=== PATIENT | male | born 1990 | race Caucasian/White ===

== ENCOUNTER 2022-03-28 08:13 | Day surgery (SDC) | payer OTHER, SELFPAY ==
[2022-03-28] VITALS (15 sets, daily range): BP systolic 122–153; BP diastolic 63–91; PULSE 75–98; RESP 14–18; TEMP 36.2–36.7; O2SAT 96–99; BMI 24.6
[2022-03-28] MEDS: CEFAZOLIN 2 GM INJ IVP (10:03)
[2022-03-28] MEDS: BUPIVACAINE 0.25% 30 ML INJECTION (11:50)
--- NOTE | 2022-03-28 14:08 | PM.GSPRC ---
Operative Note Date of procedure: 03/28/22 Type of Procedure: Laparoscopic converted to open right inguinal hernia repair Procedure Description: After discussing the risks and benefits of the procedure, the patient signed informed consent.? The operative site was marked and the patient was brought to the operating room and placed on the operating table in supine position.? Care was taken to pad the patient's pressure points.?? The patient was then [intubated/given sedation] by anesthesia.?? The operative site was then prepped and draped in the usual sterile fashion.? A time-out was then performed. ? A curvilinear incision was made below the umbilicus. Dissection was carried down to subcutaneous tissue until the anterior rectus fascia was encountered. This was incised off the midline. The rectus muscles were then retracted exposing the posterior fascia. A space maker port with a dissecting balloon was then introduced. The preperitoneal space was inflated under direct vision. The balloon was then removed and the preperitoneal space insufflated. A 10 mm 0 degree scope was then advanced and the area was surveyed for bleeding. There was a moderate amount of bleeding I was evident from a branch of the epigastrics. This was dissected out in clips applied. Dissection was made difficult over Hira's ligament, secondary to scar tissue. The dissection was attempted laterally and the appropriate plane exposed. The peritoneal edge was identified and slowly taken down. The cord structures were identified and circumferentially dissected out. The leading edge of the hernia sac on the anterior aspect of the cords was stuck and difficult to dissect out. This was unable to be dissected away from the cord structures and the decision was made to convert to an open procedure. Hemostasis was assured prior to conversion. All ports were removed under direct visualization. The fascial defect around the umbilicus was closed with an 0 Vicryl stitch. All port sites were closed with 4-0 Monocryl suture. Local anesthetic was injected into the skin and subcutaneous tissue overlying the inguinal canal. An oblique incision would was made over the external ring. Dissection was carried down into the subcutaneous tissue using cautery until the external oblique fascia was encountered. This was cleared off. The external ring was identified and after injection of more local anesthetic, the external oblique was incised using a knife. This was extended using the Metzenbaum scissors with care to dissect the underlying cord structures away before cutting. The cord was cleared from the inside of the inguinal canal and looped with a Shakir drain. A indirect inguinal hernia was identified. The hernia sac was day of dissected off of the cord structures. This was opened to ensure no intra-abdominal contents were present. The hernia sac was then ligated proximal and reduced into the abdomen. A piece of polypropylene mesh was obtained and cut to size. This was secured to the pubic tubercle using to 2-0 Prolene and a double-arm suture. The Prolene was run along the inguinal ligament and superiorly along the transversalis fascia securing the tails behind the cord and recreating the internal ring. Wound was examined for hemostasis. The external oblique fascia was then reapproximated with absorbable suture. The wound was then closed in layers including Sintia's fascia. The skin was then closed with a running subcuticular suture. Sterile dressings were applied. Instrument sponge and needle counts were correct at the end of the case. The patient was woken and taken to the PACU in stable condition. The patient was then woken and transported to the recovery area in stable condition. ? The patient tolerated the procedure well. Findings: Indirect inguinal hernia. Laparoscopic converted to open inguinal hernia repair with placement of mesh. Anesthesia: GETA Surgeon: Jerica Leyva MD Estimated blood loss (mL): 30 Condition: stable Disposition: same day
--- NOTE | 2022-03-28 14:26 | W.ANESCHARGE ---
Anesthesia Charges Start Date/Time Anesthesia Start Date: 03/28/22 Anesthesia Start Time: 10:04 Stop Date/Time Anesthesia Stop Date: 03/28/22 Anesthesia Stop Time: 14:25 Summary Emergency: No
--- NOTE | 2022-03-28 14:31 | W.ANESCHARGE ---
Anesthesia Charges Start Date/Time Anesthesia Start Date: 03/28/22 Anesthesia Start Time: 10:04 Stop Date/Time Anesthesia Stop Date: 03/28/22 Anesthesia Stop Time: 14:25 Summary Emergency: No
[2022-03-28] MEDS: LACTATED RINGERS 1000 ML 1,000 ML 100 ML IV (15:35)
[2022-03-28] MEDS: METOCLOPRAMIDE HCL 5 MG/ML INJ 10 MG IVP (15:38)
[2022-03-28] MEDS: OXYCODONE 5 MG TABLET PO (16:04)
--- NOTE | 2022-03-31 14:57 | SUR.PREOP ---
Out of Phase I time/staff updated based upon arrival into OR time.
== END 2022-03-28 16:38 | disposition home or self-care (01) ==
PROVIDERS: Visit Provider Surgery
PROC: (CPT 49650; principal; 2022-03-28 09:55)
DX: K40.90 Unilateral inguinal hernia, without obstruction or gangrene, not specified as recurrent (principal); Z53.31 Laparoscopic surgical procedure converted to open procedure
CPT/HCPCS: 49505; 830; 860; A9270; C1781; J0690; J1170; J2250; J2405; J2704; J2765; J3010; J3490; J7120